=== PATIENT | female | born 1945 | race Caucasian/White ===

== ENCOUNTER 2022-06-11 09:05 | Inpatient (IN) ==
[2022-06-11] MEDS ORDERED: 0.9 % SODIUM CHLORIDE 1,000 ML IV ONE (09:16)
[2022-06-11] MEDS ORDERED: KETOROLAC 30 MG/ML VIAL IV ONE (09:16)
--- NOTE | 2022-06-11 09:39 | Emergency Department Note ---
HPI General Chief complaint: Flank Pain Stated complaint: kidney cyst pain Time Seen by Provider: 06/11/22 09:14 Source: patient Mode of arrival: ambulatory Limitations: no limitations History of Present Illness HPI Narrative: Narrative: This is a 76-year-old female presents complaining of a 1 month history of bilateral upper abdominal pain, worse on the right. She states she has had the right-sided upper abdominal pain for approximately a month and the left side started hurting approximately 2 weeks ago. She also states that she lost approximately 80 pounds over the last 6 months without trying to. The pa emily is a continuous drinker and smoker and has a history of COPD as well as a previous CVA and is on anticoagulants. She denies any dysuria, frequency or urgency. She also denies any fever sweats or chills nausea or vomiting or diarrhea. She initially stated the pain was a 10 out of 10. Related Data Home Medications Medication Instructions Recorded Confirmed advanced e See Rx Instructions PO QDAY 06/25/20 06/11/22 atorvastatin 80 mg tablet 80 mg PO QHS 06/25/20 06/11/22 cholecalciferol (vitamin D3) 10 10 mcg PO QDAY 06/25/20 06/11/22 mcg (400 unit) capsule clopidogrel 75 mg tablet 75 mg PO QDAY 06/25/20 06/11/22 diltiazem HCl 30 mg tablet 30 mg PO BID 06/25/20 06/11/22 lisinopril 10 mg tablet 10 mg PO QDAY 06/10/22 06/11/22 multivitamin (Multiple Vitamins 1 tab PO QDAY 06/10/22 06/11/22 tablet) omega-3 fatty acids 150 mg-fish 1 cap PO QDAY 06/10/22 06/11/22 oil 400 mg capsule (Fish Oil Pearls) tramadol 50 mg tablet 50 mg PO QDAY 06/10/22 06/11/22 Previous Rx's Medication Instructions Recorded acetaminophen 325 mg tablet 650 mg PO Q4-6HP PRN Per Pain 06/12/22 Protocol #30 tabs cefdinir 300 mg capsule 300 mg PO BID 5 days #10 caps 06/12/22 nicotine (polacrilex) 2 mg gum 2 mg buccal Q2H PRN Withdrawl 06/12/22 Symptoms #100 ea nicotine 21 mg/24 hr daily 21 mg topical DAILY@1000 #28 ea 06/12/22 transdermal patch (Nicoderm CQ) Allergies Allergy/AdvReac Type Severity Reaction Status Date / Time alendronate sodium Allergy Severe Unknown Verified 06/11/22 14:36 [From Fosamax] Review of Systems ROS ROS Narrative: Narrative: All systems ED: reviewed and negative except as stated. 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) CVA (cerebral vascular accident) (Chronic) Tobacco dependence (Chronic) Chronic cough (Chronic) Emphysema of lung (Chronic) Medical History (Updated 06/10/22 @ 14:05 by Dennys Morales) Abdominal pain Alcohol dependence Anxiety Anxiety state, unspecified Cholelithiasis Chronic cough Collapsed vertebra Colonic polyp CVA (cerebral vascular accident) Dry mouth Emphysema of lung Family history of skin conditions Hyperlipidemia 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 Nausea & vomiting Palpitations Suicidal ideations Poisoning by narcotics Tobacco dependence Underweight Surgical History (Updated 06/10/22 @ 14:05 by Dennys Morales) History of cataract extraction (~2019) History of colonoscopy (~2010) 2002 History of esophageal dilatation (~2019) History of hemorrhoidectomy Hx of rectal polypectomy peat 2016 Family History (Updated 06/10/22 @ 14:08 by Dennys Morales) Sister Uterine cancer Cancer Uterine Family/Other Prostate cancer Cancer Hypertension Stroke Other Family hx-skin condition Social History Smoking Status: Current every day smoker Alcohol Intake Frequency: 0-2 drinks per day Substance Use: does not use Exam Narrative Narrative: Narrative: General: Alert and oriented x3 answers questions cogently. Moderate pain behavior. Skin: Well perfused hydrated abdomen: Positive bowel sounds tender in both upper quadrants without rebound CVA or psoas tenderness. No rigidity is distention ascites or masses or pedal splenomegaly. Pulmonary: Clear to auscultation without rales rhonchi or wheezes. CV: Regular rate and rhythm without murmurs clicks rubs or gallops. General Limitations: no limitations Course Vital Signs Vital signs: Vital Signs Temperature 97.7 F 06/11/22 09:07 Pulse Rate 90 06/11/22 09:07 Respiratory Rate 20 06/11/22 09:07 Blood Pressure 134/73 06/11/22 09:07 Pulse Oximetry (%) 96 06/11/22 09:07 Oxygen Delivery Method Room Air 06/11/22 09:07 Temperature 98.1 F 06/12/22 11:10 Pulse Rate 88 06/12/22 11:10 Respiratory Rate 16 06/12/22 11:10 Blood Pressure 125/79 06/12/22 11:10 Pulse Oximetry (%) 99 06/12/22 11:10 Oxygen Delivery Method Room Air 06/12/22 11:10 MDM MDM Narrative Medical decision making narrative: Narrative: Reviewed patient's work-up at [facility] including her CT scan. Her right kidney has a 4.1 cm cystic lesion at the superior pole of the right kidney with some peripheral calcification and mild amount of internal dense material. She has additional smaller simple left renal cysts with no hydronephrosis in either case she has several bilateral nonobstructing renal calculi including a 7 mm right renal stone with no ureteral stones and no hydronephrosis and no perinephric inflammation. She has a few low-density lesions in the liver which are too small to characterize but the radiologist felt they were probably cyst or hemangiomas with no biliary duct dilatation the large and small bowel and small bowel were unremarkable with no identification of the appendix. ReSound of the right side was obtained and showedRight kidney measures 10.1 x 5.1 x 5.1 cm. There is an upper pole mass. This measures 3.3 x 3.4 x [address] scan demonstrates mural calcification and internal architecture. A predominantly solid mass. Malignancy is possible. MRI scan with contrast material is recommended for further characterization. There are nonobstructing renal calculi. Largest stone is in the mid right kidney. This measures 13 mm. There is no hydronephrosis. Post void urinary bladder is evaluated. There is 150 mL post void residual. No bladder calculus or detectable mass. Bilateral ureteral jets are identified. IMPRESSION: 1. Solid mass in the upper pole the right kidney. This measures 3.3 x 3.4 x 3.7 cm. Contrast-enhanced MRI scan recommended for further evaluation 2. Nonobstructing right renal calculi 3. No right hydronephrosis 4. Large postvoid residual urine volume Lab studies showed a elevated white count of 14.7, with a left shift. Her urine showed positive white cells (greater than 182 red cells 160 and leukocyte Estrace of 500. 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 We will try to admit patient for antibiotic treatment she was given ceftriaxone IV in the ED. Sepsis Sepsis Identified: Yes Time Zero: 1300 Lab Data 06/12/22 05:08 06/11/22 09:30 Labs: Lab Results 06/11/22 06/11/22 06/11/22 Range/Units 09:30 09:30 09:30 WBC 14.7 H (4.5-11.0) K/mcL RBC 4.06 (3.59-5.38) M/mcL Hgb 13.6 (11.2-15.7) g/dL Hct 39.7 (34.1-44.9) % POC Hct (36-48) MCV 97.8 (80.0-100.0) fL MCH 33.5 (26.0-34.0) pg MCHC 34.3 (31.0-36.0) g/dL RDW 12.3 (11.5-14.5) % Plt Count 313 (140-440) K/mcL MPV 9.0 (8.8-12.5) fL Immature Gran % (Auto) 0.4 (0.0-0.5) % Neut % (Auto) 77.1 (38.0-78.0) % Lymph % (Auto) 13.8 L (15.5-49.0) % [place] % (Auto) 7.3 (1.0-12.0) % Eos % (Auto) 0.9 (0.0-7.0) % Baso % (Auto) 0.5 (0.0-2.0) % Lymph # (Auto) 2.02 (1.50-4.80) K/mcL [place] # (Auto) 1.07 H (0.10-0.90) K/mcL Eos # (Auto) 0.13 (0.00-0.70) K/mcL Baso # (Auto) 0.08 (0.00-0.30) K/mcL Immature Gran # 0.06 H (0.00-0.05) K/mcl Absolute Neutrophils 11.30 H (1.80-8.00) K/mcL PT 13.0 (11.9-14.5) sec INR 0.9 (0.9-1.1) POC Sodium (133-145) Sodium 135 (133-145) mmol/L POC Potassium (3.3-5.1) Potassium 3.8 (3.3-5.1) mmol/L POC Chloride (96-108) Chloride 96 (96-108) mmol/L Carbon Dioxide 26 (22-30) mmol/L POC Total CO2 (22-30) Anion Gap 13.0 (8.0-16.0) POC BUN (6-20) BUN 13 (8-23) mg/dL Creatinine 0.7 (0.6-1.1) mg/dL POC Creatinine (0.6-1.2) GFR Calculation 84 Glucose 113 H (70-105) mg/dL POC Glucose (70-105) Calcium 9.5 (8.6-10.4) mg/dL POC WB Ioniz Calcium (1.16-1.32) Total Bilirubin 0.5 (0.1-1.0) mg/dL AST 29 (<32) U/L ALT 31 (<40) U/L Alkaline Phosphatase 77 (39-117) U/L Total Protein 7.0 (5.9-8.4) gm/dL Albumin 4.4 (3.2-5.2) gm/dL Globulin 2.6 (2.2-3.7) gm/dL Albumin/Globulin Ratio 1.7 (1.0-2.3) Urine Color Urine Appearance (Clear) Urine pH (5.0-9.0) Ur Specific [place] (1.000-1.035) Urine Protein (Negative) mg/dL Urine Glucose (UA) (Negative) mg/dL Urine Ketones (Negative) mg/dL Urine Occult Blood (Negative) mg/dL Urine Nitrate (Negative) Urine Bilirubin (Negative) mg/dL Urine Urobilinogen mg/dL Ur Leukocyte Esterase (Negative) /uL Urine RBC (0-3) /hpf Urine WBC (0-4) /hpf Ur Squamous Epith Cells (0-4) /hpf Urine Bacteria (0) /hpf Ur Culture Indicated? 06/11/22 06/11/22 Range/Units 10:23 10:34 WBC (4.5-11.0) K/mcL RBC (3.59-5.38) M/mcL Hgb (11.2-15.7) g/dL Hct (34.1-44.9) % POC Hct 38.0 (36-48) MCV (80.0-100.0) fL MCH (26.0-34.0) pg MCHC (31.0-36.0) g/dL RDW (11.5-14.5) % Plt Count (140-440) K/mcL MPV (8.8-12.5) fL Immature Gran % (Auto) (0.0-0.5) % Neut % (Auto) (38.0-78.0) % Lymph % (Auto) (15.5-49.0) % [place] % (Auto) (1.0-12.0) % Eos % (Auto) (0.0-7.0) % Baso % (Auto) (0.0-2.0) % Lymph # (Auto) (1.50-4.80) K/mcL [place] # (Auto) (0.10-0.90) K/mcL Eos # (Auto) (0.00-0.70) K/mcL Baso # (Auto) (0.00-0.30) K/mcL Immature Gran # (0.00-0.05) K/mcl Absolute Neutrophils (1.80-8.00) K/mcL PT (11.9-14.5) sec INR (0.9-1.1) POC Sodium 134 (133-145) Sodium (133-145) mmol/L POC Potassium 4.0 (3.3-5.1) Potassium (3.3-5.1) mmol/L POC Chloride 99 (96-108) Chloride (96-108) mmol/L Carbon Dioxide (22-30) mmol/L POC Total CO2 29.0 (22-30) Anion Gap (8.0-16.0) POC BUN 13 (6-20) BUN (8-23) mg/dL Creatinine (0.6-1.1) mg/dL POC Creatinine 0.6 (0.6-1.2) GFR Calculation Glucose (70-105) mg/dL POC Glucose 104 (70-105) Calcium (8.6-10.4) mg/dL POC WB Ioniz Calcium 1.12 L (1.16-1.32) Total Bilirubin (0.1-1.0) mg/dL AST (<32) U/L ALT (<40) U/L Alkaline Phosphatase (39-117) U/L Total Protein (5.9-8.4) gm/dL Albumin (3.2-5.2) gm/dL Globulin (2.2-3.7) gm/dL Albumin/Globulin Ratio (1.0-2.3) Urine Color Yellow Urine Appearance Cloudy A (Clear) Urine pH 6.0 (5.0-9.0) Ur Specific [place] 1.012 (1.000-1.035) Urine Protein 100 A (Negative) mg/dL Urine Glucose (UA) Negative (Negative) mg/dL Urine Ketones Negative (Negative) mg/dL Urine Occult Blood 0.20 (Negative) mg/dL Urine Nitrate Negative (Negative) Urine Bilirubin Negative (Negative) mg/dL Urine Urobilinogen Negative mg/dL Ur Leukocyte Esterase 500 A (Negative) /uL Urine RBC 160 H (0-3) /hpf Urine WBC > 182 H (0-4) /hpf Ur Squamous Epith Cells 0 (0-4) /hpf Urine Bacteria None (0) /hpf Ur Culture Indicated? yes Discharge Plan Patient/Caregiver Discharge Instructions Pt seen by [facility] [employer] [facility] [employer] HAND/PA only: No Activity: increase activity as tolerated Patient Disposition: Xfer As Inpt ([facility]) Discharge Date/Time: 06/11/22 14:07
[2022-06-11 10:10] LABS: Basophils # (Auto) 0.08 K/mcL (0.00-0.30); Basophils % (Auto) 0.5 % (0.0-2.0); Eosinophils # (Auto) 0.13 K/mcL (0.00-0.70); Eosinophils % (Auto) 0.9 % (0.0-7.0); Hematocrit 39.7 % (34.1-44.9); Hemoglobin 13.6 g/dL (11.2-15.7); Lymphocytes # (Auto) 2.02 K/mcL (1.50-4.80); Lymphocytes % (Auto) 13.8 % (15.5-49.0); Mean Cell Volume 97.8 fL (80.0-100.0); Mean Corpuscular HGB Conc 34.3 g/dL (31.0-36.0); Monocytes # (Auto) 1.07 K/mcL (0.10-0.90); Monocytes % (Auto) 7.3 % (1.0-12.0); Neutrophils % (Auto) 77.1 % (38.0-78.0); Platelet Count 313 K/mcL (140-440); RBC 4.06 M/mcL (3.59-5.38); Red Cell Distribution Width 12.3 % (11.5-14.5); WBC 14.7 K/mcL (4.5-11.0)
[2022-06-11 10:38] LABS: POC Calcium, Ionized 1.12 (1.16-1.32); POC Creatinine 0.6 (0.6-1.2)
[2022-06-11] MEDS ORDERED: cefTRIAXone 1 GM VIAL IV ONE (10:40)
--- NOTE | 2022-06-11 11:32 | Ultrasound Report ---
INDICATION: flank pain TECHNIQUE: Routine renal ultrasound COMPARISON: Previous CT scan dated 05/27/2022 FINDINGS: Right kidney measures 10.1 x 5.1 x 5.1 cm. There is an upper pole mass. This measures 3.3 x 3.4 x 3[address] scan demonstrates mural calcification and internal architecture. A predominantly solid mass. Malignancy is possible. MRI scan with contrast material is recommended for further characterization. There are nonobstructing renal calculi. Largest stone is in the mid right kidney. This measures 13 mm. There is no hydronephrosis. Post void urinary bladder is evaluated. There is 150 mL post void residual. No bladder calculus or detectable mass. Bilateral ureteral jets are identified. IMPRESSION: 1. Solid mass in the upper pole the right kidney. This measures 3.3 x 3.4 x 3.7 cm. Contrast-enhanced MRI scan recommended for further evaluation 2. Nonobstructing right renal calculi 3. No right hydronephrosis 4. Large postvoid residual urine volume Interpreted and Authenticated by: Arben Bolden 06/11/22
--- NOTE | 2022-06-11 11:33 | XRay Report ---
INDICATION: bilat UQ abd ppain TECHNIQUE: AP portable upright chest x-ray COMPARISON: Previous chest x-ray dated 11/02/2021 FINDINGS: LUNGS: Diffuse interstitial abnormality and appearance consistent with edema. Patient has a history of COPD and smoking Pulmonary parenchymal infiltrate or mass Heart, vascular:No significant cardiomegaly. Pulmonary vascularity is normal. No pulmonary edema or pulmonary congestion Mediastinum, [place]:No mediastinal widening. No hilar mass Pleura:No pleural fluid. No pleural-based mass or calcification Skeletal:Severe degenerative disease in the left shoulder IMPRESSION: 1. Diffuse interstitial abnormality and probable emphysema as patient with smoking history 2. No acute infiltrate. No interval change Interpreted and Authenticated by: Arben Bolden 06/11/22
[2022-06-11 11:39] LABS: INR 0.9 (0.9-1.1)
[2022-06-11 12:01] LABS: Appearance,Urine CLOUDY (Clear); Bilirubin,Urine Negative (Negative); Color,Urine Yellow; Culture Indicated,Urine yes; Glucose,Urine (UA) Negative (Negative); Ketones,Urine Negative (Negative); Leukocyte Esterase,Urine 500 /uL (Negative); Nitrate,Urine Negative (Negative); Protein,Urine 100 mg/dL (Negative); Specific Gravity,Urine 1.012 (1.000-1.035); Urine RBC 160 /hpf (0-3); Urine Squamous Epithelial Cell 0 /hpf (0-4); Urine WBC > 182 /hpf (0-4); Urobilinogen,Urine Negative
[2022-06-11 12:43] LABS: ALT/SGPT 31 U/L (<40); AST/SGOT 29 U/L (<32); Albumin 4.4 gm/dL (3.2-5.2); Albumin/Globulin Ratio 1.7 (1.0-2.3); Alkaline Phosphatase 77 U/L (39-117); Bilirubin,Total 0.5 mg/dL (0.1-1.0); Blood Urea Nitrogen 13 mg/dL (8-23); Calcium 9.5 mg/dL (8.6-10.4); Carbon Dioxide 26 mmol/L (22-30); Chloride 96 mmol/L (96-108); Globulin 2.6 gm/dL (2.2-3.7); Glomerular Filtration Rate 84; Glucose 113 mg/dL (70-105)
--- NOTE | 2022-06-11 13:44 | Internal Med History&Physical ---
HPI History of Present Illness Patient information: Note initiated : 06/11/22 at 1:27 pm Service Date, if different from initiated Date: [] Patient: Inez Rosa 76 y/o F admitted on for kidney cyst pain. Chief Complaint: [] History of present illness: Ms. Rosa is a 76 year old female with a history of hypertension, hyperlipidemia, stroke, emphysema, anxiety, proximal left humerus fracture, a right superior pole renal lesion, nonobstructing bilateral nephrolithiasis, unintentional weight loss for 3 to 4 months who presented to the emergency department for persistent right sided lower abdominal and right lower back pain that has been bothering her for about 6 weeks. About 2 weeks prior to presenting to the emergency department, the patient had a CT abdomen pelvis with contrast that was notable for a 4.1 cm cystic lesion at the superior pole of the right kidney with some peripheral calcification and a mild amount of internal dense material, several bilateral nonobstructing renal calculi. Patient says that she was prescribed tramadol for her pain but that has not made a significant difference. In the emergency room, the patient had a chest x-ray which showed diffuse interstitial abnormalities and probable emphysema given the patient's smoking history, no acute infiltrates and no interval changes on chest x-ray. A limited right renal ultrasound showed a solid mass in the upper pole of the right kidney measuring 3.3 x 3.4 x 3.7 cm, nonobstructing right renal calculi, no right hydronephrosis. Radiology recommended a contrast-enhanced CT scan for further evaluation. Urinalysis was suggestive of UTI, it was given a dose of ceftriaxone. Hospital medicine was asked to admit the patient for pyelonephritis. The patient does not have a fever in the emergency department, she also has not had any dysuria however does endorse frequent urination. The patient also does not have nearly as much right flank tenderness as I was expect with acute pyelonephritis. Discussed the plan with the patient, I told her that we really should obtain an MRI scan to evaluate for a right renal mass. I told the patient she probably does not have pyelonephritis but she could still have a urinary tract infection in the form of acute cystitis which we will treat with antibiotics. Patient said she was agreeable for admission to the hospital for further treatment. Review of systems Constitutional: no fever, positive for unintentional 10 pound weight loss over the last 3 to 4 months Eyes: no vision changes or pain Cardiovascular: no chest pain, no palpitations Respiratory: no cough or dyspnea Gastrointestinal: Positive for right lower quadrant abdominal pain and right pelvic pain, no nausea, vomiting, or diarrhea Genitourinary: no dysuria, positive for frequent urination Musculoskeletal: no arthralgia or myalgia Integumentary: no skin lesion or wound Neurological: no focal weakness or numbness Psychiatric: no anxiety or depression Physical exam Head: Atraumatic, normal inspection. Eyes: normal appearance, no scleral icterus. Neck: full ROM Respiratory: no respiratory distress. Cardiovascular: normal rate and rhythm, S1, S2. GI/Abdominal: Mild right lower quadrant tenderness, no guarding or rebound tenderness : No significant right flank tenderness to palpation appreciated Extremities: full range of motion, nontender. Neurological: CN II-XII intact, intact motor, intact sensation. Psychiatric: normal mood. 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) CVA (cerebral vascular accident) (Chronic) Tobacco dependence (Chronic) Chronic cough (Chronic) Emphysema of lung (Chronic) Medical History (Updated 06/10/22 @ 14:05 by Dennys Morales) Abdominal pain Alcohol dependence Anxiety Anxiety state, unspecified Cholelithiasis Chronic cough Collapsed vertebra Colonic polyp CVA (cerebral vascular accident) Dry mouth Emphysema of lung Family history of skin conditions Hyperlipidemia 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 Nausea & vomiting Palpitations Suicidal ideations Poisoning by narcotics Tobacco dependence Underweight Surgical History (Updated 06/10/22 @ 14:05 by Dennys Morales) History of cataract extraction (~2018) History of colonoscopy (~2010) 2002 History of esophageal dilatation (~2018) History of hemorrhoidectomy Hx of rectal polypectomy peat 2016 Family History (Updated 06/10/22 @ 14:08 by Dennys Morales) Sister Uterine cancer Cancer Uterine Family/Other Prostate cancer Cancer Hypertension Stroke Other Family hx-skin condition Social History (Updated 06/10/22 @ 14:06 by Dennys Morales) marital status: occupational status: retired physical activity: none smoking status: Current every day smoker alcohol intake frequency: 0-2 drinks per day substance use type: does not use MEDS/ALLERGIES Home Medications and Allergies Home Medications Medication Instructions Recorded Confirmed Type advanced e See Rx Instructions PO QDAY 06/25/20 History atorvastatin 80 mg tablet 80 mg PO QHS 06/25/20 06/25/20 History cholecalciferol (vitamin D3) 10 10 mcg PO QDAY 06/25/20 06/25/20 History mcg (400 unit) capsule clopidogrel 75 mg tablet 75 mg PO QDAY 06/25/20 06/25/20 History diltiazem HCl 30 mg tablet 30 mg PO BID 06/25/20 06/25/20 History escitalopram oxalate 10 mg tablet 10 mg PO QDAY 06/10/22 06/10/22 History lisinopril 10 mg tablet 10 mg PO QDAY 06/10/22 06/10/22 History multivitamin (Multiple Vitamins 1 tab PO QDAY 06/10/22 06/10/22 History tablet) omega-3 fatty acids 150 mg-fish 1 cap PO QDAY 06/10/22 06/10/22 History oil 400 mg capsule (Fish Oil Pearls) tramadol 50 mg tablet 50 mg PO QDAY 06/10/22 06/10/22 History Allergies Allergy/AdvReac Type Severity Reaction Status Date / Time alendronate sodium Allergy Severe Unknown Verified 06/11/22 10:41 [From Fosamax] EXAM Constitutional Vitals: Temp Pulse Resp BP Pulse Ox O2 Del Method 97.7 F 82 20 132/69 97 Room Air 06/11/22 09:07 06/11/22 11:46 06/11/22 09:07 06/11/22 12:01 06/11/22 11:46 06/11/22 09:07 DATA Data Completed and Pending Labs: Labs from last 24 hours 06/11/22 06/11/22 06/11/22 10:34 10:23 09:30 WBC RBC Hgb Hct POC Hct 38.0 MCV MCH MCHC RDW Plt Count MPV Immature Gran % (Auto) Neut % (Auto) Lymph % (Auto) [place] % (Auto) Eos % (Auto) Baso % (Auto) Lymph # (Auto) [place] # (Auto) Eos # (Auto) Baso # (Auto) Immature Gran # Absolute Neutrophils PT 13.0 INR 0.9 POC Sodium 134 Sodium POC Potassium 4.0 Potassium POC Chloride 99 Chloride Carbon Dioxide POC Total CO2 29.0 Anion Gap POC BUN 13 BUN Creatinine POC Creatinine 0.6 GFR Calculation Glucose POC Glucose 104 Calcium POC WB Ioniz Calcium 1.12 L Total Bilirubin AST ALT Alkaline Phosphatase Total Protein Albumin Globulin Albumin/Globulin Ratio Urine Color Yellow Urine Appearance Cloudy A Urine pH 6.0 Ur Specific [place] 1.012 Urine Protein 100 A Urine Glucose (UA) Negative Urine Ketones Negative Urine Occult Blood 0.20 Urine Nitrate Negative Urine Bilirubin Negative Urine Urobilinogen Negative Ur Leukocyte Esterase 500 A Urine RBC 160 H Urine WBC > 182 H Ur Squamous Epith Cells 0 Urine Bacteria None Ur Culture Indicated? yes 06/11/22 06/11/22 09:30 09:30 WBC 14.7 H RBC 4.06 Hgb 13.6 Hct 39.7 POC Hct MCV 97.8 MCH 33.5 MCHC 34.3 RDW 12.3 Plt Count 313 MPV 9.0 Immature Gran % (Auto) 0.4 Neut % (Auto) 77.1 Lymph % (Auto) 13.8 L [place] % (Auto) 7.3 Eos % (Auto) 0.9 Baso % (Auto) 0.5 Lymph # (Auto) 2.02 [place] # (Auto) 1.07 H Eos # (Auto) 0.13 Baso # (Auto) 0.08 Immature Gran # 0.06 H Absolute Neutrophils 11.30 H PT INR POC Sodium Sodium 135 POC Potassium Potassium 3.8 POC Chloride Chloride 96 Carbon Dioxide 26 POC Total CO2 Anion Gap 13.0 POC BUN BUN 13 Creatinine 0.7 POC Creatinine GFR Calculation 84 Glucose 113 H POC Glucose Calcium 9.5 POC WB Ioniz Calcium Total Bilirubin 0.5 AST 29 ALT 31 Alkaline Phosphatase 77 Total Protein 7.0 Albumin 4.4 Globulin 2.6 Albumin/Globulin Ratio 1.7 Urine Color Urine Appearance Urine pH Ur Specific [place] Urine Protein Urine Glucose (UA) Urine Ketones Urine Occult Blood Urine Nitrate Urine Bilirubin Urine Urobilinogen Ur Leukocyte Esterase Urine RBC Urine WBC Ur Squamous Epith Cells Urine Bacteria Ur Culture Indicated? A/P Narrative A/P Narrative: Assessment: 76 year old female with a history of hypertension, hyperlipidemia, stroke, emphysema, anxiety, proximal left humerus fracture, a right superior pole renal lesion, nonobstructing bilateral nephrolithiasis, unintentional weight loss for 3 to 4 months who presented to the emergency department for persistent right sided lower abdominal and right lower back pain that has been bothering her for about 6 weeks. The cause of her symptoms are unclear, she may have a urinary tract infection. There is also concern the patient has a right renal mass. #Right lower quadrant abdominal, right pelvic and right back pain of uncertain etiology #Probable right renal mass #Acute cystitis versus asymptomatic bacteriuria #Unintentional weight loss #Possible urinary retention #Essential hypertension #Hyperlipidemia #Emphysema #History of stroke #History of proximal left humerus fracture #Bilateral nephrolithiasis Plan -MRI abdomen with and without contrast. -Ceftriaxone 2 g IV Q 24 hours for now. -Follow urine culture. -Postvoid bladder scan. -Analgesics as needed. -Home medication reconciliation. -Regular diet. -Disposition: Admit to inpatient MedSurg. Urology follow-up at discharge versus inpatient consult Time Spent With Patient Time: Total time spent is greater than 50% in coordination of care (as documented) at patient's floor/unit and/or counseling patient:
[2022-06-11] MEDS ORDERED: LORazepam 1 MG TABLET PO SCH (14:25)
[2022-06-11] MEDS ORDERED: ONDANSETRON 4 MG/2 ML VIAL IV PRN (14:25)
[2022-06-11] MEDS ORDERED: ACETAMINOPHEN 325 MG TABLET PO PRN (14:25)
[2022-06-11] MEDS ORDERED: IBUPROFEN 200 MG TABLET PO PRN (14:25)
[2022-06-11] MEDS: 0.9 % SODIUM CHLORIDE 10 ML SYRINGE IV SCH ×2 (16:48→22:29)
[2022-06-11] MEDS ORDERED: NICOTINE POLACRILEX 2 MG GUM CHEW/PARK PRN (17:05)
[2022-06-11] MEDS: traMADol 50 MG TABLET PO PRN (17:47)
[2022-06-11] MEDS ORDERED: GADOBENATE DIMEGLUMINE 15 ML/VIAL IV ONE (18:57)
[2022-06-11] MEDS: DOCUSATE SODIUM 100 MG CAPSULE PO SCH (20:41)
[2022-06-11] MEDS ORDERED: SENNOSIDES 1 TABLET PO SCH (21:00)
[2022-06-11] MEDS: NICOTINE 21 MG PATCH TOPICAL SCH (21:20)
[2022-06-12] MEDS: traMADol 50 MG TABLET PO PRN ×2 (00:05→05:56)
[2022-06-12] MEDS: 0.9 % SODIUM CHLORIDE 10 ML SYRINGE IV SCH (05:56)
[2022-06-12 06:42] LABS: Basophils # (Auto) 0.06 K/mcL (0.00-0.30); Basophils % (Auto) 0.7 % (0.0-2.0); Eosinophils # (Auto) 0.37 K/mcL (0.00-0.70); Eosinophils % (Auto) 4.4 % (0.0-7.0); Hematocrit 33.6 % (34.1-44.9); Hemoglobin 11.2 g/dL (11.2-15.7); Lymphocytes # (Auto) 2.03 K/mcL (1.50-4.80); Lymphocytes % (Auto) 24.1 % (15.5-49.0); Mean Cell Volume 97.4 fL (80.0-100.0); Mean Corpuscular HGB Conc 33.3 g/dL (31.0-36.0); Mean Platelet Volume 9.1 fL (8.8-12.5); Monocytes # (Auto) 0.86 K/mcL (0.10-0.90); Monocytes % (Auto) 10.2 % (1.0-12.0); Neutrophils % (Auto) 60.2 % (38.0-78.0); Platelet Count 243 K/mcL (140-440); RBC 3.45 M/mcL (3.59-5.38); Red Cell Distribution Width 12.3 % (11.5-14.5); WBC 8.4 K/mcL (4.5-11.0)
--- NOTE | 2022-06-12 06:58 | Magnetic Resonance Report ---
INDICATION: Right renal mass, urinary retention. COMPARISON: Previous CT scan dated 05/27/2022. Previous ultrasound dated 06/11/2022 TECHNIQUE: Axial T1, SS FSE BH, in-phase BH, [id number] BH and 3-D contrast LAVA. Axial T2 FS and T2 FS SS FSE. Coronal SS FSE and post contrast images. 15 mLMultiHance injected intravenously FINDINGS: Kidneys: There is an exophytic right upper pole renal mass. This measures 3.0 x 3.5 x 3.3 cm. This is a complex mass with some internal enhancement. This is not a simple cyst. This is probably renal cell carcinoma. There is no renal vein tumor thrombus. There is no adjacent adenopathy. Left kidney is negative. No other solid mass. Incidental note is made of a small left renal cyst. Liver:Negative. No focal hepatic mass. Gallbladder, biliary: Negative gallbladder. No cholelithiasis. No dilated bile ducts. Spleen:No splenomegaly. No focal abnormality. Normal splenic and portal veins Pancreas:No pancreatic mass. No peripancreatic abnormality Adrenal glands:Negative. No adrenal nodule Lymphatic:Negative. No retroperitoneal or mesenteric adenopathy IMPRESSION: 1. Right upper pole renal mass consistent with neoplasm 2. No renal vein tumor thrombus. No pathologic adenopathy Interpreted and Authenticated by: Arben Bolden 06/12/22
[2022-06-12] MEDS ORDERED: cefTRIAXone 2 GM in DEXTROSE 5% IN WATER 50 ML IV SCH (09:00)
--- NOTE | 2022-06-12 09:13 | Discharge Summary ---
Discharge Provider Provider IMPORTANT FOLLOW-UP INFORMATION FOR PCP: Patient information: Note initiated : 06/12/22 at 9:09 am Service Date, if different from initiated Date: [] Patient: Inez Rosa 76 y/o F admitted on 06/11/22 for kidney cyst pain. Chief Complaint: [] Date of admission: 06/11/22 14:07 Discharge date: 06/12/22 Primary care physician: Virgie Vizcaino Consults: 06/11/22 Consult to Physician [CONS] Stat Comment: Consulting Provider: Long Reece Reason For Exam: Physician to Consult COURSE Hospital Course Hospital course: Ms. Rosa is a 76 year old female with a history of hypertension, hyperlipidemia, stroke, emphysema, anxiety, proximal left humerus fracture, a right superior pole renal lesion, nonobstructing bilateral nephrolithiasis, unintentional weight loss for 3 to 4 months who presented to the emergency department for persistent right sided lower abdominal and right lower back pain that has been bothering her for about 6 weeks. About 2 weeks prior to presenting to the emergency department, the patient had a CT abdomen pelvis with contrast that was notable for a 4.1 cm cystic lesion at the superior pole of the right kidney with some peripheral calcification and a mild amount of internal dense material, several bilateral nonobstructing renal calculi. Patient says that she was prescribed tramadol for her pain but that has not made a significant difference. In the emergency room, the patient had a chest x-ray which showed diffuse interstitial abnormalities and probable emphysema given the patient's smoking history, no acute infiltrates and no interval changes on chest x-ray. A limited right renal ultrasound showed a solid mass in the upper pole of the right kidney measuring 3.3 x 3.4 x 3.7 cm, nonobstructing right renal calculi, no right hydronephrosis. Radiology recommended a contrast-enhanced CT scan for further evaluation. Urinalysis was suggestive of UTI, it was given a dose of ceftriaxone. Hospital medicine was asked to admit the patient for pyelonephritis. The patient does not have a fever in the emergency department, she also has not had any dysuria however does endorse frequent urination. The patient also does not have nearly as much right flank tenderness as I was expect with acute pyelonephritis. Discussed the plan with the patient, I told her that we really should obtain an MRI scan to evaluate for a right renal mass. I told the patient she probably does not have pyelonephritis but she could still have a urinary tract infection in the form of acute cystitis which we will treat with antibiotics. Patient said she was agreeable for admission to the hospital for further treatment. The patient was started on ceftriaxone for UTI, and MRI abdomen with and without contrast was ordered for further evaluation of the renal mass. 06/12 Vital stable overnight, the patient feels better today. Leukocytosis has resolved. Urine culture pending. The MRI showed an exophytic right upper pole renal mass measuring 3 x 3.5 x 3.3 cm that radiology thinks is probably renal cell carcinoma. There is no renal vein tumor thrombus, no adjacent adenopathy. The patient is discharged to home, she says that she has a urology appointment on 06/16/[address] Webb. I discharged her with cefdinir 300 mg twice daily for 5 days for the UTI. Physical exam Head: Atraumatic, normal inspection. Eyes: normal appearance, no scleral icterus. Neck: full ROM Respiratory: no respiratory distress. Cardiovascular: normal rate and rhythm, S1, S2. GI/Abdominal: Mild right lower quadrant tenderness, no guarding or rebound tenderness : No significant right flank tenderness to palpation appreciated Extremities: full range of motion, nontender. Neurological: CN II-XII intact, intact motor, intact sensation. Psychiatric: normal mood. Skin: warm, normal color Discharge diagnosis: Acute cystitis Secondary discharge diagnosis: Right renal mass Time Spent with Patient Time attestation: Total time spent providing and/or coordinating discharge services: Time spent: Less than 30 minutes EXAM Constitutional Vitals: Temp Pulse Resp BP Pulse Ox O2 Del Method 98.1 F 89 16 124/66 96 Room Air 06/12/22 08:00 06/12/22 08:00 06/12/22 08:00 06/12/22 08:00 06/12/22 08:00 06/12/22 08:00 Discharge Data Data Completed and Pending Labs on day of discharge: Labs from last 24 hours 06/12/22 06/11/22 06/11/22 05:08 10:34 10:23 WBC 8.4 RBC 3.45 L Hgb 11.2 Hct 33.6 L POC Hct 38.0 MCV 97.4 MCH 32.5 MCHC 33.3 RDW 12.3 Plt Count 243 MPV 9.1 Immature Gran % (Auto) 0.4 Neut % (Auto) 60.2 Lymph % (Auto) 24.1 [place] % (Auto) 10.2 Eos % (Auto) 4.4 Baso % (Auto) 0.7 Lymph # (Auto) 2.03 [place] # (Auto) 0.86 Eos # (Auto) 0.37 Baso # (Auto) 0.06 Immature Gran # 0.03 Absolute Neutrophils 5.06 PT INR POC Sodium 134 Sodium POC Potassium 4.0 Potassium POC Chloride 99 Chloride Carbon Dioxide POC Total CO2 29.0 Anion Gap POC BUN 13 BUN Creatinine POC Creatinine 0.6 GFR Calculation Glucose POC Glucose 104 Calcium POC WB Ioniz Calcium 1.12 L Total Bilirubin AST ALT Alkaline Phosphatase Total Protein Albumin Globulin Albumin/Globulin Ratio Urine Color Yellow Urine Appearance Cloudy A Urine pH 6.0 Ur Specific [place] 1.012 Urine Protein 100 A Urine Glucose (UA) Negative Urine Ketones Negative Urine Occult Blood 0.20 Urine Nitrate Negative Urine Bilirubin Negative Urine Urobilinogen Negative Ur Leukocyte Esterase 500 A Urine RBC 160 H Urine WBC > 182 H Ur Squamous Epith Cells 0 Urine Bacteria None Ur Culture Indicated? yes 06/11/22 06/11/22 06/11/22 09:30 09:30 09:30 WBC 14.7 H RBC 4.06 Hgb 13.6 Hct 39.7 POC Hct MCV 97.8 MCH 33.5 MCHC 34.3 RDW 12.3 Plt Count 313 MPV 9.0 Immature Gran % (Auto) 0.4 Neut % (Auto) 77.1 Lymph % (Auto) 13.8 L [place] % (Auto) 7.3 Eos % (Auto) 0.9 Baso % (Auto) 0.5 Lymph # (Auto) 2.02 [place] # (Auto) 1.07 H Eos # (Auto) 0.13 Baso # (Auto) 0.08 Immature Gran # 0.06 H Absolute Neutrophils 11.30 H PT 13.0 INR 0.9 POC Sodium Sodium 135 POC Potassium Potassium 3.8 POC Chloride Chloride 96 Carbon Dioxide 26 POC Total CO2 Anion Gap 13.0 POC BUN BUN 13 Creatinine 0.7 POC Creatinine GFR Calculation 84 Glucose 113 H POC Glucose Calcium 9.5 POC WB Ioniz Calcium Total Bilirubin 0.5 AST 29 ALT 31 Alkaline Phosphatase 77 Total Protein 7.0 Albumin 4.4 Globulin 2.6 Albumin/Globulin Ratio 1.7 Urine Color Urine Appearance Urine pH Ur Specific [place] Urine Protein Urine Glucose (UA) Urine Ketones Urine Occult Blood Urine Nitrate Urine Bilirubin Urine Urobilinogen Ur Leukocyte Esterase Urine RBC Urine WBC Ur Squamous Epith Cells Urine Bacteria Ur Culture Indicated? Discharge Plan Patient/Caregiver Discharge Instructions Activity: increase activity as tolerated Diet: Regular Diet Prescriptions: New acetaminophen 325 mg Tablet 650 mg PO Q4-6HP PRN (Reason: Per Pain Protocol) Qty: 30 2RF nicotine [Nicoderm CQ] 21 mg/24 hr Patch 24 Hour 21 mg topical DAILY@1000 Qty: 28 3RF nicotine (polacrilex) 2 mg Gum 2 mg buccal Q2H PRN (Reason: Withdrawl Symptoms) Qty: 100 5RF cefdinir 300 mg capsule 300 mg PO BID 5 Days Qty: 10 0RF Continued clopidogrel 75 mg tablet 75 mg PO QDAY diltiazem HCl 30 mg tablet 30 mg PO BID atorvastatin 80 mg tablet 80 mg PO QHS advanced e See Rx Instructions PO QDAY Rx Instructions: 400 Unit Capsule PO daily; cholecalciferol (vitamin D3) 10 mcg (400 unit) capsule 10 mcg PO QDAY tramadol 50 mg tablet 50 mg PO QDAY Fish Oil Pearls 150-400 mg capsule 1 cap PO QDAY multivitamin [Multiple Vitamins] Tablet 1 tab PO QDAY lisinopril 10 mg tablet 10 mg PO QDAY Follow Up Plan Follow up with: Kd Webb MD [Physician] - (Right renal mass. ) Virgie Vizcaino MD [Primary Care Provider] - Patient Disposition: Home, Self-Care Overall status at discharge: patient is progressing back to baseline Discharge Orders: Discharge Order (Routine); Ordered 06/12/22 Ordered By: Long RILEY VTE Deep Vein Thrombosis/Pulmonary Embolism Present on Admission: No
[2022-06-12] MEDS ORDERED: cefTRIAXone 2 GM VIAL ONE (09:26)
[2022-06-12] MEDS: NICOTINE 21 MG PATCH TOPICAL SCH (09:42)
[2022-06-12] MEDS: DOCUSATE SODIUM 100 MG CAPSULE PO SCH (09:42)
== END 2022-06-12 11:10 | disposition home or self-care (01) | DRG 690 ==
LOC: ED 09:05 → MEDSUR 14:07
PROVIDERS: ADMIT Internal Medicine; ATTEND Internal Medicine

== ENCOUNTER 2025-01-08 05:29 | Inpatient (IN) ==
[2025-01-08] MEDS: ONDANSETRON 4 MG/2 ML VIAL IV ONE (06:00)
[2025-01-08 06:25] LABS: Basophils # (Auto) 0.06 K/mcL (0.00-0.30); Basophils % (Auto) 0.4 % (0.0-2.0); Eosinophils # (Auto) 0.97 K/mcL (0.00-0.70); Eosinophils % (Auto) 7.1 % (0.0-7.0); Hematocrit 30.3 % (34.1-44.9); Hemoglobin 9.8 g/dL (11.2-15.7); Lymphocytes # (Auto) 1.39 K/mcL (1.50-4.80); Lymphocytes % (Auto) 10.1 % (15.5-49.0); Mean Corpuscular HGB Conc 32.3 g/dL (31.0-36.0); Monocytes # (Auto) 1.00 K/mcL (0.10-0.90); Monocytes % (Auto) 7.3 % (1.0-12.0); Neutrophils % (Auto) 74.9 % (38.0-78.0); Platelet Count 298 K/mcL (140-440); RBC 3.07 M/mcL (3.59-5.38); WBC 13.7 K/mcL (4.5-11.0)
[2025-01-08 06:44] LABS: ALT/SGPT 18 U/L (<40); AST/SGOT 20 U/L (<32); Albumin 3.7 gm/dL (3.2-5.2); Albumin/Globulin Ratio 1.4 (1.0-2.3); Alkaline Phosphatase 99 U/L (39-117); Anion Gap 8.0 (8.0-16.0); Bilirubin,Total 0.2 mg/dL (0.1-1.0); Blood Urea Nitrogen 8 mg/dL (8-23); Calcium 8.9 mg/dL (8.6-10.4); Carbon Dioxide 32 mmol/L (22-30); Chloride 99 mmol/L (96-108); Globulin 2.7 gm/dL (2.2-3.7); Glucose 92 mg/dL (70-105); Potassium 3.8 mmol/L (3.3-5.1); Sodium 139 mmol/L (133-145)
[2025-01-08] MEDS: fentaNYL 100 MCG/2 ML VIAL IV ONE (07:51)
[2025-01-08 09:59] LABS: INR 1.0 (0.9-1.1); Prothrombin Time 14.2 sec (11.9-14.5)
[2025-01-08 11:24] LABS: Bacteria,Urine Few /hpf (0); Bilirubin,Urine NEGATIVE (Negative); Color,Urine LT. YELLOW; Glucose,Urine (UA) NEGATIVE (Negative); Ketones,Urine NEGATIVE (Negative); Leukocyte Esterase,Urine NEGATIVE /uL (Negative); PH,Urine 6.0 (5.0-9.0); Protein,Urine 30 mg/dL (Negative); Specific Gravity,Urine 1.015 (1.000-1.035); Urobilinogen,Urine 0.2 mg/dL
[2025-01-08] MEDS ORDERED: SENNOSIDES 1 TABLET PO PRN (13:05)
[2025-01-08] MEDS ORDERED: POTASSIUM CHLORIDE 40 MEQ in DEXTROSE 5% IN WATER 500 ML IV PRN (13:05)
[2025-01-08] MEDS ORDERED: MAGNESIUM SULFATE 2 GM/50 ML BAG IV PRN (13:05)
[2025-01-08] MEDS ORDERED: IPRATROPIUM/ALBUTEROL 3 ML AMPUL.NEB NEB PRN ×2 (13:05→16:37)
[2025-01-08] MEDS ORDERED: POTASSIUM CHLORIDE 20 MEQ TABLET PO PRN ×2 (13:05)
[2025-01-08] MEDS ORDERED: METOCLOPRAMIDE 10 MG/2 ML VIAL IV PRN (13:05)
[2025-01-08] MEDS ORDERED: ONDANSETRON 4 MG/2 ML VIAL IV PRN ×2 (13:05→16:37)
[2025-01-08] MEDS ORDERED: ACETAMINOPHEN 325 MG TABLET PO PRN (13:05)
[2025-01-08] MEDS: 0.9 % SODIUM CHLORIDE 1,000 ML IV ONE (13:19)
[2025-01-08] MEDS ORDERED: fentaNYL 100 MCG/2 ML VIAL ONE (15:05)
[2025-01-08] MEDS ORDERED: PROPOFOL 200 MG/20 ML VIAL IV ONE (15:05)
[2025-01-08] MEDS ORDERED: DEXAMETHASONE 10 MG/ML VIAL ONE (15:06)
[2025-01-08] MEDS ORDERED: TRANEXAMIC ACID 1,000 MG/10 ML VIAL ONE (15:06)
[2025-01-08] MEDS ORDERED: GLYCOPYRROLATE 0.2 MG/ML VIAL IV ONE (15:06)
[2025-01-08] MEDS ORDERED: ONDANSETRON 4 MG/2 ML VIAL ONE (15:06)
[2025-01-08] MEDS ORDERED: FAMOTIDINE/PF 20 MG/2 ML VIAL IV ONE (15:09)
[2025-01-08] MEDS: 0.9 % SODIUM CHLORIDE 10 ML SYRINGE IV SCH (15:11)
[2025-01-08] MEDS: ceFAZolin 2 GM in DEXTROSE 5% IN WATER 50 ML IV SCH (15:25)
[2025-01-08] MEDS ORDERED: PHENYLephrine 1 MG/10 ML SYRINGE (ANEST) ONE (15:39)
[2025-01-08] MEDS ORDERED: HYDROmorphone 0.5 MG/0.5 ML SYRINGE ONE (15:41)
[2025-01-08] MEDS ORDERED: MAGNESIUM SULFATE 2 GM/50 ML BAG IV ONE (15:42)
[2025-01-08] MEDS ORDERED: VASOPRESSIN 20 UNIT/ML VIAL ONE (16:01)
[2025-01-08] MEDS ORDERED: BENZOCAINE/MENTHOL 1 LOZENGE PO PRN (16:37)
[2025-01-08] MEDS ORDERED: METOPROLOL TARTRATE 5 MG/5 ML VIAL IV PRN (16:37)
[2025-01-08] MEDS ORDERED: LACTATED RINGERS 250 ML IV PRN (16:37)
[2025-01-08] MEDS ORDERED: NALOXONE HCL 0.4 MG/ML VIAL IV PRN (16:37)
[2025-01-08] MEDS ORDERED: fentaNYL 100 MCG/2 ML VIAL IV PRN (16:37)
[2025-01-08] MEDS ORDERED: ceFAZolin 2 GM in DEXTROSE 5% IN WATER 50 ML IV SCH (16:45)
[2025-01-08] MEDS ORDERED: HYOSCYAMINE SULFATE 0.125 MG TABLET PO PRN (17:08)
[2025-01-08] MEDS: HYDROmorphone 0.5 MG/0.5 ML SYRINGE IV PRN (17:17)
[2025-01-08] MEDS: TRANEXAMIC ACID 1,000 MG/10 ML VIAL IV SCH (17:35)
[2025-01-08] MEDS: METHOCARBAMOL 1,000 MG/10 ML VIAL IV PRN ×2 (17:36→23:09)
[2025-01-08] MEDS: LACTATED RINGERS 1,000 ML IV SCH (18:43)
[2025-01-08] MEDS: fentaNYL 25 MCG PATCH TD SCH (20:06)
[2025-01-08] MEDS: DOCUSATE SODIUM 100 MG CAPSULE PO SCH (20:49)
[2025-01-08] MEDS: ASPIRIN 325 MG ENTERIC COATED TABLET PO SCH (20:50)
[2025-01-09 06:29] LABS: Basophils # (Auto) 0.01 K/mcL (0.00-0.30); Basophils % (Auto) 0.1 % (0.0-2.0); Eosinophils # (Auto) 0 K/mcL (0.00-0.70); Eosinophils % (Auto) 0 % (0.0-7.0); Hematocrit 28.2 % (34.1-44.9); Hemoglobin 9.0 g/dL (11.2-15.7); Lymphocytes # (Auto) 0.99 K/mcL (1.50-4.80); Lymphocytes % (Auto) 7.6 % (15.5-49.0); Mean Corpuscular HGB Conc 31.9 g/dL (31.0-36.0); Monocytes # (Auto) 0.81 K/mcL (0.10-0.90); Monocytes % (Auto) 6.2 % (1.0-12.0); Neutrophils % (Auto) 85.8 % (38.0-78.0); Platelet Count 282 K/mcL (140-440); RBC 2.86 M/mcL (3.59-5.38); WBC 13.0 K/mcL (4.5-11.0)
[2025-01-09 06:44] LABS: ALT/SGPT 19 U/L (<40); AST/SGOT 25 U/L (<32); Albumin 3.5 gm/dL (3.2-5.2); Albumin/Globulin Ratio 1.3 (1.0-2.3); Alkaline Phosphatase 88 U/L (39-117); Anion Gap 9.0 (8.0-16.0); Bilirubin,Direct < 0.2 mg/dL (0-0.3); Bilirubin,Total 0.3 mg/dL (0.1-1.0); Blood Urea Nitrogen 14 mg/dL (8-23); Calcium 8.4 mg/dL (8.6-10.4); Carbon Dioxide 29 mmol/L (22-30); Chloride 99 mmol/L (96-108); Globulin 2.6 gm/dL (2.2-3.7); Glucose 113 mg/dL (70-105); Phosphorous 2.7 mg/dL (2.5-4.5); Potassium 4.0 mmol/L (3.3-5.1); Sodium 137 mmol/L (133-145); Triglycerides 69 mg/dL (<150); Uric Acid 3.8 mg/dL (2.5-8.0)
[2025-01-09] MEDS: OMEPRAZOLE 20 MG CAPSULE PO SCH (07:32)
[2025-01-09] MEDS: LIDOCAINE 4% TOP PATCH TOPICAL SCH (09:15)
[2025-01-09] MEDS: POLYETHYLENE GLYCOL 3350 17 GM PACKET PO PRN (09:29)
== END 2025-01-09 13:57 | DRG 481 ==
LOC: ED 05:29 → MEDSUR 12:59
PROVIDERS: ADMIT Internal Medicine; ATTEND Internal Medicine
PROC: ORIFHIP (2025-01-08 15:28)